=== PATIENT | male | born 1965 | race Caucasian/White ===

== ENCOUNTER 2021-02-24 05:54 | Inpatient (IN) | payer BC ==
[~2021-02-24] VITALS: Ht 190.5 cm; Wt 107.0 kg
[~2021-02-24 05:54] MED LIST: ALLOPURINOL PO; CELEXA PO; LYRICA PO
[2021-02-24] MEDS ORDERED: EPINEPHRINE 1 MG/ML, 1ML ONE (06:54)
[2021-02-24] MEDS ORDERED: BUPIVACAINE/PF 0.5% ONE (06:54)
[2021-02-24] MEDS ORDERED: BUPIVACAINE/PF 0.25% ONE (06:54)
[2021-02-24] MEDS ORDERED: INDIGO CARMINE 0.8%, 5ML ONE (06:54)
[2021-02-24] MEDS ORDERED: DEXAMETHASONE 4 MG/ML, 5ML ONE (06:54)
[2021-02-24] MEDS ORDERED: LIDOCAINE/PF 1%-EPI 1:200K, 30 ML ONE (06:54)
[2021-02-24] MEDS ORDERED: BACITRACIN 50,000 UNIT ONE (06:54)
[2021-02-24] MEDS ORDERED: CHLORHEXIDINE 15 ML UDC ONE (07:14)
[2021-02-24] MEDS ORDERED: CHLORHEXIDINE 15 ML UDC PO ONE (07:30)
[2021-02-24] MEDS ORDERED: LACTATED RINGERS 1,000 ML IV SCH (07:30)
[2021-02-24] MEDS ORDERED: MIDAZOLAM 1 MG/ML, 2ML ONE (07:33)
[2021-02-24] MEDS ORDERED: PROPOFOL 50 ML ONE ×4 (07:33→10:33)
[2021-02-24] MEDS ORDERED: FENTANYL PF 250 MCG/5ML ONE (07:33)
[2021-02-24 07:34] VITALS: BP 129/76
[2021-02-24] MEDS ORDERED: CELE200C PO (07:42)
[2021-02-24] MEDS ORDERED: CITA40TA12 PO (07:42)
[2021-02-24] MEDS ORDERED: PROP40TA PO (07:42)
[2021-02-24] MEDS ORDERED: ALLO300T PO (07:42)
[2021-02-24] MEDS ORDERED: FENTANYL PF 100 MCG/2ML ONE ×2 (08:45→12:00)
[2021-02-24] MEDS ORDERED: ACETAMINOPHEN 325 MG TABLET PO PRN (09:30)
[2021-02-24] MEDS ORDERED: PROMETHAZINE 25 MG/ML, 1ML IVPush PRN (09:30)
[2021-02-24] MEDS ORDERED: LABETALOL 5MG/ML, 20ML IV PRN ×2 (09:30→13:30)
[2021-02-24] MEDS ORDERED: hydrALAzine 20 MG/ML, 1ML IV PRN (09:30)
[2021-02-24] MEDS ORDERED: FENTANYL PF 100 MCG/2ML IV PRN (09:30)
[2021-02-24] MEDS ORDERED: OXYcodone 5 MG/5 ML ORAL.SOL UDC PO PRN (09:30)
[2021-02-24] MEDS ORDERED: MEPERIDINE/PF 25MG/0.5ML IVPush PRN (09:30)
[2021-02-24] MEDS ORDERED: HYDROmorphone 1 MG/ML, 1ML INJ IVPush PRN (09:30)
[2021-02-24] MEDS ORDERED: ALBUTEROL SULFATE 2.5 MG/3 ML NPPB PRN (09:30)
[2021-02-24] MEDS ORDERED: DIAZEPAM 5 MG/ML, 2ML IVPush PRN (09:30)
[2021-02-24] MEDS ORDERED: ROCURONIUM 10MG/ML,5ML ONE (09:44)
[2021-02-24] MEDS ORDERED: PROPOFOL 10 MG/ML, 20ML ONE (09:44)
[2021-02-24] MEDS ORDERED: ONDANSETRON 2MG/ML, 2ML ONE (09:44)
[2021-02-24] MEDS ORDERED: CEFAZOLIN 1,000 MG ONE (09:44)
[2021-02-24] MEDS ORDERED: DEXAMETHASONE 4 MG/ML, 1ML ONE (09:44)
[2021-02-24] MEDS ORDERED: SUCCINYLCHOLINE 20 MG/ML, 10ML ONE (09:44)
[2021-02-24] MEDS ORDERED: HYDROmorphone PCA 30 MG/30 ML IV PRN (12:00)
[2021-02-24] MEDS ORDERED: METHOCARBAMOL 1,000 MG in DEXTROSE 5% 100 ML IV PRN (12:00)
[2021-02-24 13:27] VITALS: BP 125/71
[2021-02-24] MEDS ORDERED: ONDANSETRON 2MG/ML, 2ML IV PRN (13:30)
[2021-02-24] MEDS ORDERED: DIPHENHYDRAMINE 50 MG/ML, 1ML IVPush PRN (13:30)
[2021-02-24] MEDS ORDERED: DIAZEPAM 5 MG/ML, 2ML IV PRN (13:30)
[2021-02-24] MEDS: D5%-0.9% NACL+KCL 20MEQ 1,000 ML IV SCH ×2 (14:40→23:40)
[2021-02-24] MEDS: DEXAMETHASONE 4 MG/ML, 1ML IV SCH ×2 (14:40→20:25)
[2021-02-24] MEDS: CEFAZOLIN PMX 1GM/50ML 50 ML IVPB SCH ×2 (16:42→23:40)
[2021-02-24] MEDS: GABAPENTIN 300 MG CAPSULE PO SCH ×2 (16:43→20:25)
[2021-02-24 19:14] VITALS: BP 138/78
[2021-02-24] MEDS: DIAZEPAM 5 MG TABLET PO PRN (22:40)
[2021-02-24 23:45] VITALS: BP 119/67
[2021-02-25] MEDS: DEXAMETHASONE 4 MG/ML, 1ML IV SCH (02:45)
[2021-02-25 02:48] VITALS: BP 129/55
[2021-02-25] MEDS: DIAZEPAM 5 MG TABLET PO PRN ×2 (04:25→10:41)
[2021-02-25 06:05] LABS: CREATININE 0.96 mg/dL (0.7-1.3)
[2021-02-25 07:20] VITALS: BP 122/50
[2021-02-25] MEDS: D5%-0.9% NACL+KCL 20MEQ 1,000 ML IV SCH ×2 (08:00→16:00)
[2021-02-25] MEDS: CEFAZOLIN PMX 1GM/50ML 50 ML IVPB SCH ×2 (08:18→16:00)
[2021-02-25] MEDS: GABAPENTIN 300 MG CAPSULE PO SCH ×2 (08:19→16:00)
[2021-02-25] MEDS: OXYcodone IR 5MG TABLET PO PRN ×3 (08:19→15:22)
[2021-02-25] MEDS ORDERED: SENNA/DOCUSATE TABLET PO SCH (09:00)
[2021-02-25 12:39] VITALS: BP 113/68
== END 2021-02-25 16:00 | disposition home or self-care (01) | DRG 472 ==
LOC: ORIP 05:54 → 4NE 12:56 → 4EST 02-25 10:38
PROVIDERS: ADMIT Orthopaedic Surgery Orthopaedic Surgery of the Spine; ATTEND Orthopaedic Surgery Orthopaedic Surgery of the Spine
PROC: 0RG20A0 Fusion of 2 or more Cervical Vertebral Joints with Interbody Fusion Device, Anterior Approach, Anterior Column, Open Approach (ICD-10-PCS; 2021-02-24)
PROC: 0RT30ZZ Resection of Cervical Vertebral Disc, Open Approach (ICD-10-PCS; principal; 2021-02-24 07:30)
DX: M48.02 Spinal stenosis, cervical region (principal); M47.12 Other spondylosis with myelopathy, cervical region; G95.20 Unspecified cord compression; M50.122 Cervical disc disorder at C5-C6 level with radiculopathy; M50.123 Cervical disc disorder at C6-C7 level with radiculopathy; M47.22 Other spondylosis with radiculopathy, cervical region; M41.82 Other forms of scoliosis, cervical region
CPT/HCPCS: 36415; 72040; S0020; 82565; 95938; 95941; C1713; G0378; J0171; J0690; J1100; J1170; J2250; J2405; J2704; J3010; C1762; C1889; J0330; J3480; J7120